=== PATIENT | male | born 1990 | race Caucasian/White ===

== ENCOUNTER 2020-08-08 09:35 | Emergency (ER) | payer MEDICAID ==
[~2020-08-08] VITALS: Ht 195.6 cm; Wt 59.6 kg
[~2020-08-08 09:35] MED LIST: OMEP40CA PO
[2020-08-08 09:40] VITALS: BP 123/87
[2020-08-08] MEDS ORDERED: ibuprofen tablet 400 MG TABLET PO ONE (10:10)
[2020-08-08] MEDS ORDERED: IBUP-1984 PO (10:14)
[2020-08-08] MEDS ORDERED: NEOM10DR45 LEFT EAR (10:14)
[2020-08-08] MEDS ORDERED: CEFD300C3 PO (10:14)
== END 2020-08-08 10:48 | disposition home or self-care (01) ==
LOC: ER 09:36
DX: H66.92 Otitis media, unspecified, left ear (principal); F12.90 Cannabis use, unspecified, uncomplicated; Z86.14 Personal history of Methicillin resistant Staphylococcus aureus infection; Z88.1 Allergy status to other antibiotic agents; Z79.899 Other long term (current) drug therapy
CPT/HCPCS: 99283